=== PATIENT | female | born 1990 | race American Indian/Alaskan Native ===

== ENCOUNTER 2021-04-21 08:30 | Outpatient (CLI) | payer OTHER ==
--- NOTE | 2021-04-21 12:17 | Ultrasound Report ---
ULTRASOUND ABDOMEN, LIMITED INDICATION / CLINICAL INFORMATION: LEFT UPPER/LOWER QUADRANT PAIN. COMPARISON: None available. FINDINGS: Limited grayscale and color Doppler imaging of the left upper quadrant. The spleen appears normal in size with no significant abnormality visualized. The stomach and stomach contents are visualized. No evidence of mass, fluid, or other significant abnormality of the left upper quadrant. FREE FLUID: None. ADDITIONAL FINDINGS: None. IMPRESSION: 1. No significant sonographic abnormality of the left upper quadrant. Scribed by: Lesvia Fitzgerald RDMS, RVT Scribed: 04/21/2021 10:01 AM I have reviewed the images, agree with this report, and edited this report as needed. Signer Name: Mitchell Crowder MD Signed: 04/21/2021 12:12 PM Workstation Name: [id number]
--- NOTE | 2021-04-21 12:22 | Ultrasound Report ---
ULTRASOUND PELVIS INDICATION / CLINICAL INFORMATION: LEFT LOWER QUADRANT PAIN. TECHNIQUE: Transabdominal. Duplex Color Doppler used: Yes. COMPARISON: None available FINDINGS: UTERUS: - Appearance: No significant abnormality. - Size (cm): 6.9 x 5.3 x 4.1 cm. - Endometrial Complex (if present): No significant abnormality.. Thickness in cm (if measured) = 0.8 cm. - Mass or cyst: None. - Additional findings: None. RIGHT ADNEXA: In the area of the right ovary, there is a hyperechoic solid focus measuring 3.7 x 3.3 x 2.8 cm. This does not have the appearance of normal ovarian tissue, however the right ovary is not seen separate to this. LEFT ADNEXA: The left ovary measures 3.1 x 2.1 x 1.7 cm. No significant ovarian cyst or mass. Normal color Doppler blood flow. URINARY BLADDER: No significant abnormality. FREE FLUID: A small amount of free fluid is noted within the right adnexa. ADDITIONAL FINDINGS: None. IMPRESSION: 1. Hyperechoic solid focus in the area of the right adnexa, ultimately nonspecific Follow-up transvag inal ultrasound would be helpful for clarification to specifically exclude possible underlying right ovarian pathology. 2. The uterus and left ovary show no significant abnormality. Scribed by: Lesvia Fitzgerald RDMS, RVT Scribed: 04/21/2021 10:28 AM I have reviewed the images, agree with this report, and edited this report as needed. Signer Name: Mitchell Crowder MD Signed: 04/21/2021 12:17 PM Workstation Name: [id number]
== END 2021-04-21 08:31 | disposition home or self-care (01) ==
LOC: US 08:30
PROVIDERS: ATTEND Internal Medicine
DX: R10.32 Left lower quadrant pain (principal)
CPT/HCPCS: 76705; 76856